=== PATIENT | female | born 1965 | race Caucasian/White ===

== ENCOUNTER 2020-06-16 17:15 | Outpatient (CLI) | payer OTHER, SELFPAY ==
--- NOTE | ~2020-06-16 | XR_ITS ---
EXAMINATION: XR chest 2V EXAM DATE: 06/16/2020 17:41 INDICATION: Cough. Left breast implant exploded. TECHNIQUE: Frontal and lateral projections of the chest obtained and reviewed. There is no prior sabino dy for comparison. FINDINGS: The lungs are clear. There are no pleural effusions. The cardiomediastinal silhouette is within normal limits. There is no pneumothorax suspected. The bones and soft tissues are unremarkab le. IMPRESSION: No acute cardiopulmonary findings. Reviewed, dictated and finalized at location A.
[2020-06-16 17:43] LABS: Basophils Absolute Auto 0.1 K/mm3 (0.0-0.1); Basophils Percent Auto 0.5 % (0.2-1.2); Eosinophils Absolute Auto 0.2 K/mm3 (0-0.3); Eosinophils Percent Auto 1.6 % (0-4.4); Hematocrit 41.3 % (37.0-47.0); Hemoglobin 14.1 g/dL (12.0-15.0); Immature Granulocyte Absolute 0.07 K/mm3 (0.00-0.031); Immature Granulocyte Percent A 0.5 % (0-0.5); Lymphocytes Absolute Auto 4.18 K/mm3 (0.9-3.2); Lymphocytes Percent Auto 31.9 % (18.3-44.2); Mean Corpuscular HGB Conc 34.1 g/dl (32-36); Mean Corpuscular Hemoglobin 30.7 pg (26-34); Monocytes Absolute Auto 1.1 K/mm3 (0.1-0.6); Monocytes Percent Auto 8.2 % (2.6-8.5); Neutrophils Absolute Auto 7.5 K/mm3 (1.3-6.7); Neutrophils Percent Auto 57.3 % (45.5-73.1); Platelet Count Result 273 k/mm3 (150-375); Red Blood Count 4.59 M/mm3 (4.2-5.4); Red Cell Distribution Width 12.6 % (11.5-14.5); White Blood Count 13.1 K/mm3 (4.5-10.0)
[2020-06-16 17:58] LABS: Alanine Aminotransferase 23 U/L (4-35); Albumin Level 4.5 g/dL (3.5-5.1); Alkaline Phosphatase 86 U/L (38-126); Anion Gap 13.5 mmol/L (7-16); Aspartate Amino Transferase 24 U/L (14-36); Bilirubin,Total 0.4 mg/dL (0.2-1.3); Blood Urea Nitrogen 26 mg/dL (7-17); Calcium 9.6 mg/dL (8.4-10.2); Carbon Dioxide 26 mmol/L (22-30); Chloride 102 mmol/L (98-107); Estimated Glomerular Filt Rate 52; Glucose 114 mg/dL (65-105); Potassium 3.5 mmol/L (3.4-5.0); Sodium 138 mmol/L (137-145)
== END 2020-06-16 17:16 | disposition home or self-care (01) ==
LOC: ANHIMG 17:16
PROVIDERS: PCP Family Medicine; Visit Provider Physician Assistant
DX: R05 Cough (principal); J44.9 Chronic obstructive pulmonary disease, unspecified; Z13.220 Encounter for screening for lipoid disorders
CPT/HCPCS: 36415; 71046; 80053; 85025

== ENCOUNTER 2020-08-27 06:55 | Outpatient (NON) | payer OTHER, SELFPAY ==
[2020-08-27 17:37] LABS: SARS-CoV-2 RNA PCR Negative
== END 2020-08-27 06:56 ==
PROVIDERS: PCP Family Medicine; Visit Provider Physician Assistant
DX: R05 Cough (principal); Z20.828 Contact with and (suspected) exposure to other viral communicable diseases
CPT/HCPCS: 87635; C9803; U0003

== ENCOUNTER → 2020-09-06 15:34 | Outpatient (CLI) | payer OTHER, SELFPAY ==
--- NOTE | ~2020-09-06 | CT_ITS ---
EXAMINATION:CT lung screening DATE: 09/06/2020 15:50 INDICATION: Personal history of tobacco dependence. 60 pack year history. TECHNIQUE: Computed tomography (CT) of the chest was performed without intravenous contrast. Automate d exposure control and iterative reconstruction technique were employed. The dose-length product (DLP ) was 105.94 mGy-cm. COMPARISON: Chest 2 views 06/16/2020 FINDINGS: There is mild emphysema. There is mild atelectasis bilaterally. There is a 3 mm nodule in l eft upper lobe. No pleural effusion. The heart size is normal. No pericardial effusion. There are kandis ateral breast implants. The left breast implant is ruptured. There is mild thoracic spondylosis. IMPRESSION: 1. Lung-RADS category 2: Benign appearance or behavior. Continue annual screening with noncontrast lo w-dose chest CT in 12 months. Reviewed, dictated and finalized at location A. IMPRESSION: 1. Lung-RADS category 2: Benign appearance or behavior. Continue annual screeni ng with noncontrast low-dose chest CT in 12 months.
== END ==
PROVIDERS: PCP Family Medicine; Visit Provider Physician Assistant
DX: Z87.891 Personal history of nicotine dependence (principal)
CPT/HCPCS: G0297

== ENCOUNTER 2021-01-24 13:17 | Outpatient (CLI) | payer OTHER, SELFPAY | END 2021-01-24 13:18 | disposition home or self-care (01) | LOC: ANHCOVIDVC 13:18 | PROVIDERS: PCP Family Medicine | DX: Z23 Encounter for immunization (principal) | CPT/HCPCS: 0001A; 91300 ==

== ENCOUNTER 2021-02-14 13:09 | Outpatient (CLI) | payer OTHER, SELFPAY | END 2021-02-14 13:10 | disposition home or self-care (01) | LOC: ANHCOVIDVC 13:09 | PROVIDERS: PCP Family Medicine | DX: Z23 Encounter for immunization (principal) | CPT/HCPCS: 0002A; 91300 ==

== ENCOUNTER 2022-03-29 08:38 | Outpatient (CLI) | payer OTHER, SELFPAY ==
--- NOTE | ~2022-03-29 | XR_ITS ---
EXAMINATION: XR chest 2V 03/29/2022 09:00 INDICATION: Cough PROCEDURE: 2 view chest COMPARISON: 06/16/2020 FINDINGS: The lungs are clear. The cardiomediastinal silhouette is within normal limits. There are no pleural effusions. There is no pneumothorax suspected. IMPRESSION: 1: NO ACUTE CARDIOPULMONARY DISEASE. Reviewed, dictated and finalized at location B.
--- NOTE | ~2022-03-29 | XR_ITS ---
XR lumbar spine min 4V 03/29/2022 09:00 Indication: Low back pain for one week Procedure: 5 views lumbar spine Comparison: No prior studies for comparison. Findings: There is disc narrowing at L4-5 with grade 1 degenerative spondylolisthesis at this level. There is facet hypertrophy at L4-5 and L5-S1. No fracture or traumatic malalignment. Vertebral body h eights are maintained. Pedicles intact. Sacral foramen are symmetric. Impression: 1: Mild-moderate lumbar spondylosis. Reviewed, dictated and finalized at location B. Impression: 1: Mild-moderate lumbar spondylosis.
[2022-03-29 09:10] LABS: Basophils Absolute Auto 0.1 K/mm3 (0.0-0.1); Basophils Percent Auto 0.6 % (0.2-1.2); Eosinophils Absolute Auto 0.3 K/mm3 (0-0.3); Eosinophils Percent Auto 2.6 % (0-4.4); Hematocrit 36.4 % (37.0-47.0); Hemoglobin 12.1 g/dL (12.0-15.0); Immature Granulocyte Absolute 0.04 K/mm3 (0.00-0.031); Immature Granulocyte Percent A 0.4 % (0-0.5); Lymphocytes Percent Auto 24.6 % (18.3-44.2); Mean Corpuscular HGB Conc 33.2 g/dl (32-36); Mean Corpuscular Hemoglobin 31.1 pg (26-34); Mean Corpuscular Volume 93.6 fl (80-100); Mean Platelet Volume 8.5 fl (7.4-10.4); Monocytes Absolute Auto 0.9 K/mm3 (0.1-0.6); Monocytes Percent Auto 8.6 % (2.6-8.5); Neutrophils Percent Auto 63.2 % (45.5-73.1); Platelet Count Result 224 k/mm3 (150-375); Red Blood Count 3.89 M/mm3 (4.2-5.4)
[2022-03-29 09:23] LABS: Alanine Aminotransferase 17 U/L (6-35); Albumin Level 4.2 g/dL (3.5-5.1); Alkaline Phosphatase 87 U/L (38-126); Anion Gap 10 mmol/L (8-16); Aspartate Amino Transferase 21 U/L (14-36); Bilirubin,Total 0.4 mg/dL (0.2-1.3); Blood Urea Nitrogen 29 mg/dL (7-17); Calcium 8.8 mg/dL (8.4-10.2); Carbon Dioxide 24 mmol/L (22-30); Chloride 105 mmol/L (98-107); Cholesterol 173 mg/dL (0-200); Estimated Glomerular Filt Rate 57; Glucose 114 mg/dL (65-110); HDL Direct 42 mg/dL; Potassium 3.9 mmol/L (3.4-5.0); Sodium 139 mmol/L (137-145); Triglycerides 232 mg/dL (<150)
[2022-03-29 09:34] LABS: LDL Cholesterol Direct 88 mg/dL
[2022-03-29 09:59] LABS: Hemoglobin A1C 5.4 % (<5.7)
== END 2022-03-29 08:39 | disposition home or self-care (01) ==
PROVIDERS: PCP Family Medicine; Visit Provider Nurse Practitioner Gerontology
DX: M47.816 Spondylosis without myelopathy or radiculopathy, lumbar region (principal); Z72.89 Other problems related to lifestyle; D72.829 Elevated white blood cell count, unspecified; R73.9 Hyperglycemia, unspecified; R05.9 Cough, unspecified
CPT/HCPCS: 36415; 71046; 72110; 80053; 80061; 83036; 85025

== ENCOUNTER → 2022-09-27 14:09 | Outpatient (CLI) | payer OTHER, SELFPAY ==
--- NOTE | ~2022-09-27 | MR_ITS ---
EXAMINATION: MR lumbar spine wo con DATE: 09/27/2022 14:43 INDICATION: Low back pain. Left leg pain. Lumbar radiculopathy. TECHNIQUE: Magnetic resonance imaging (MRI) of the lumbar spine was performed without intravenous con trast. Sequences included sagittal T2-weighted FSE, sagittal T2-weighted FS FSE, sagittal T1-weighted FSE, and axial T2-weighted FSE. COMPARISON: Lumbar spine radiographs 03/29/2022 FINDINGS: There is 3 mm anterolisthesis of L4 on L5. Vertebral body heights are normal. There is mild ly decreased disc height at L3-L4 and L4-L5. The distal spinal cord signal intensity is normal. The c onus medullaris is at T12. The following disc levels are specifically discussed: L1-L2: The disc does not extend beyond the endplate margin. There is mild bilateral facet joint osteo arthritis. There is no neural foraminal stenosis. There is no central canal stenosis. L2-L3: The disc is bulging. There is mild bilateral facet joint osteoarthritis. There is mild bilater al neural foraminal stenosis. There is mild central canal stenosis. L3-L4: The disc is bulging. There is mild bilateral facet joint osteoarthritis. There is mild bilater al neural foraminal stenosis. There is mild central canal stenosis. L4-L5: The disc is bulging and has an annular fissure. There is severe bilateral facet joint osteoart hritis. There is mild bilateral neural foraminal stenosis. There is mild central canal stenosis. L5-S1: The disc does not extend beyond the endplate margin. There is mild bilateral facet joint osteo arthritis. There is no neural foraminal stenosis. There is no central canal stenosis. IMPRESSION: 1. Mild lumbar spondylosis. Reviewed, dictated and finalized at location A. 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 Mild lumbar spondylosis.
== END ==
PROVIDERS: PCP Family Medicine; Visit Provider Nurse Practitioner Family
DX: M47.26 Other spondylosis with radiculopathy, lumbar region (principal)
CPT/HCPCS: 72148

== ENCOUNTER 2023-03-02 09:21 | Outpatient (CLI) | payer OTHER, SELFPAY ==
--- NOTE | ~2023-03-02 | XR_ITS ---
EXAM: XR lumbar spine min 4V DATE: 03/02/2023 09:36 HISTORY: M43.16 - Spondylolisthesis, lumbar region, LEFT SIDE PAIN . COMPARISON: 03/29/2022; MR lumbar spine 09/27/2022. FINDINGS: 5 nonrib-bearing lumbar-type vertebral bodies. Left-sided sacralization of L5. Pedicles in tact. 7 mm anterolisthesis at L4-5 that reduces slightly in extension. Otherwise normal alignment. Ve rtebral body heights preserved. Multilevel disc space narrowing and marginal osteophytosis, moderate at L4-5. Multilevel facet sclerosis and hypertrophy in the lower lumbar spine. No fracture or disloca tion. Atherosclerotic aortic calcification, without aneurysm. IMPRESSION: Dynamic grade 1 anterolisthesis at L4-5. Moderate degenerative disc disease at L4-5. Mult ilevel lower lumbar facet arthropathy. Reviewed, dictated and finalized at location K. IMPRESSION: Dynamic grade 1 anterolisthesis at L4-5. Moderate degenerative disc disease at L4-5. Multilevel lower lumbar facet arthropathy.
== END 2023-03-02 09:22 | disposition home or self-care (01) ==
LOC: ANHIMG 09:26
PROVIDERS: PCP Family Medicine; Visit Provider Neurological Surgery
DX: M43.16 Spondylolisthesis, lumbar region (principal); M47.26 Other spondylosis with radiculopathy, lumbar region; M51.36 Other intervertebral disc degeneration, lumbar region
CPT/HCPCS: 72110

== ENCOUNTER 2023-09-06 07:04 | Outpatient (CLI) | payer OTHER, SELFPAY ==
[2023-09-06 07:20] LABS: Basophils Absolute Auto 0.1 K/mm3 (0.0-0.1); Basophils Percent Auto 0.8 % (0.2-1.2); Eosinophils Absolute Auto 0.2 K/mm3 (0-0.3); Eosinophils Percent Auto 2.7 % (0-4.4); Hemoglobin 14.6 g/dL (12.0-15.0); Immature Granulocyte Absolute 0.03 K/mm3 (0.00-0.031); Immature Granulocyte Percent A 0.4 % (0-0.5); Lymphocytes Absolute Auto 2.22 K/mm3 (0.9-3.2); Lymphocytes Percent Auto 26.1 % (18.3-44.2); Mean Corpuscular HGB Conc 32.4 g/dl (32-36); Mean Corpuscular Hemoglobin 29.9 pg (26-34); Mean Corpuscular Volume 92.2 fl (80-100); Mean Platelet Volume 8.9 fl (7.4-10.4); Monocytes Absolute Auto 0.7 K/mm3 (0.1-0.6); Neutrophils Absolute Auto 5.3 K/mm3 (1.3-6.7); Platelet Count Result 210 k/mm3 (150-375); Red Blood Count 4.88 M/mm3 (4.2-5.4); Red Cell Distribution Width 12.6 % (11.5-14.5); White Blood Count 8.5 K/mm3 (4.5-10.0)
[2023-09-06 07:31] LABS: Alanine Aminotransferase 24 U/L (6-35); Albumin Level 4.7 g/dL (3.5-5.1); Alkaline Phosphatase 102 U/L (38-126); Anion Gap 9 mmol/L (8-16); Aspartate Amino Transferase 22 U/L (14-36); Bilirubin,Total 0.6 mg/dL (0.2-1.3); Blood Urea Nitrogen 30 mg/dL (7-17); Calcium 10.1 mg/dL (8.4-10.2); Carbon Dioxide 24 mmol/L (22-30); Chloride 105 mmol/L (98-107); Cholesterol 226 mg/dL (0-200); Estimated Glomerular Filt Rate > 60; Glucose 105 mg/dL (65-110); HDL Direct 47 mg/dL; Potassium 4.2 mmol/L (3.4-5.0); Sodium 138 mmol/L (137-145); Triglycerides 146 mg/dL (<150)
[2023-09-06 07:41] LABS: LDL Cholesterol Direct 120 mg/dL
== END 2023-09-06 07:05 | disposition home or self-care (01) ==
LOC: ANHLAB 07:05
PROVIDERS: PCP Family Medicine; Visit Provider Physician Assistant
DX: Z13.220 Encounter for screening for lipoid disorders (principal); J44.1 Chronic obstructive pulmonary disease with (acute) exacerbation; F17.200 Nicotine dependence, unspecified, uncomplicated; J44.9 Chronic obstructive pulmonary disease, unspecified
CPT/HCPCS: 36415; 80053; 80061; 84443; 85025

== ENCOUNTER 2023-10-04 12:51 | Outpatient (CLI) | payer OTHER, SELFPAY ==
--- NOTE | ~2023-10-04 | MR_ITS ---
EXAMINATION: MR lumbar spine wo con DATE: 10/04/2023 13:21 INDICATION: Lumbar radiculopathy TECHNIQUE: Magnetic resonance imaging (MRI) of the lumbar spine was performed without intravenous con trast. Sequences included sagittal T2-weighted FSE, sagittal T2-weighted FS FSE, sagittal T1-weighted FSE, and axial T2-weighted FSE. COMPARISON: 09/27/2022 FINDINGS: Lateral hypoplastic riblets at T12 and sacralized L5 segment. 4 mm anterolisthesis L4 on L5. Vertebra l body heights are normal. Normal marrow signal. Moderate disc height loss with annular fissure at L 4-L5. Mild disc height loss at L3-L4. The conus medullaris terminates at T12-L1. There is normal sign al in the caudal spinal cord. Paravertebral soft tissues are unremarkable. The following disc levels are specifically discussed: T12-L1: The disc does not extend beyond the endplate margin. There is mild bilateral facet joint oste oarthritis. There is no neural foraminal stenosis. There is no central canal stenosis. L1-L2: The disc does not extend beyond the endplate margin. There is mild bilateral facet joint osteo arthritis. There is no neural foraminal stenosis. There is no central canal stenosis. L2-L3: Disc is minimally bulging. There is mild bilateral facet joint osteoarthritis. There is mild b ilateral neural foraminal stenosis. There is negligible central canal stenosis. L3-L4: Disc is mildly bulging. There is mild bilateral facet joint osteoarthritis. There is mild bila teral neural foraminal stenosis. There is mild central canal stenosis. L4-L5: Disc is bulging with annular fissure. There is severe bilateral facet joint osteoarthritis. Th ere is mild bilateral neural foraminal stenosis. There is mild central canal stenosis. L5-S1: The disc does not extend beyond the endplate margin. There is mild bilateral facet joint osteo arthritis. There is no neural foraminal stenosis. There is no central canal stenosis. IMPRESSION: 1. No interval change in mild lumbar spondylosis. Reviewed, dictated and finalized at location A. 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
== END 2023-10-04 12:52 | disposition home or self-care (01) ==
PROVIDERS: PCP Family Medicine; Visit Provider Neurological Surgery
DX: M47.26 Other spondylosis with radiculopathy, lumbar region (principal)
CPT/HCPCS: 72148

== ENCOUNTER 2023-12-19 00:29 | Day surgery (SDC) | payer OTHER, SELFPAY ==
[2023-11-25 11:20] VITALS: BMI 26.6
--- NOTE | 2023-12-13 08:48 | SUR.PREOP ---
Patient call in regarding upcoming procedure. Reviewed preop instructions, appointment times, and procedure prep.
--- NOTE | 2023-12-17 10:16 | SUR.PREOP ---
Patient called regarding upcoming procedure. Reviewed preop instructions, appointment times, and procedure prep.
[2023-12-19 06:49] VITALS: BP 132/57; PULSE 86; RESP 20; TEMP 36.4; O2SAT 99
[2023-12-19] MEDS: LACTATED RINGERS 1,000 ML 150 ML IV CONT (07:03)
--- NOTE | 2023-12-19 07:31 | WPDANESEPPF ---
Anes - Initial Pre Proc Eval Procedure: Operation Date: 12/19/23 08:00 Proposed Procedures p Colonoscopy - Herbert Adams MD Date/Time: 12/19/23 07:31 Surgeon: Herbert Adams MD Pre Op Diagnosis: Other fecal abnormalities Patient Data Age: 58 Gender: F Height: 1.6 m Weight: 69.5 kg Last Vital Signs Temp 97.6 F 12/19/23 06:49 Pulse 86 12/19/23 06:49 Resp 20 12/19/23 06:49 BP 132/57 L 12/19/23 06:49 Pulse Ox 99 12/19/23 06:49 O2 Del Method Room Air 12/19/23 06:49 Allergies Allergy/AdvReac Type Severity Reaction Status Date / Time No Known Allergies Allergy Verified 12/19/23 06:48 Home Medications Medication Instructions Recorded Confirmed Type celecoxib 200 mg capsule (Celebrex) 200 mg PO BID #180 caps 09/02/23 12/16/23 Rx montelukast 10 mg tablet See Rx Instructions .Route 10/22/23 12/16/23 Rx .COMPLEX #90 tabs albuterol sulfate 90 mcg/actuation 1 puff inhalation Q4H PRN 12/16/23 12/16/23 Rx aerosol inhaler (ProAir HFA) bronchospasm #8.5 grams escitalopram oxalate 5 mg tablet 5 mg PO DAILY #30 tabs 12/16/23 12/16/23 Rx fluticasone fur. 100 mcg-umeclid See Rx Instructions .Route 12/16/23 12/16/23 Rx 62.5 mcg-vilant 25 mcg .COMPLEX #720 blisters inhalat.powder (Trelegy Ellipta) lisinopril 20 See Rx Instructions .Route 12/16/23 12/16/23 Rx mg-hydrochlorothiazide 25 mg tablet .COMPLEX #90 tabs loratadine 10 mg tablet 10 mg PO DAILY #90 tabs 12/16/23 12/16/23 Rx tramadol 50 mg tablet 50 mg PO BID pain #60 tabs 12/16/23 12/16/23 Rx Patient hx anesthesia problems: none Family hx anesthesia problems: none Results Review: All pre-operative results and documents have been reviewed as part of the pre-operative evaluation. [facility] Past Medical History Medical History BCC (basal cell carcinoma), face Chronic obstructive pulmonary disease, unspecified Leakage of breast implant Tobacco dependence Surgical History Surgical History H/O breast augmentation History of basal cell carcinoma (BCC) excision Family History Family History Sibling Patient's sister is in good health Father Family history of cardiovascular disease, Onset Age: 62 Social History Social History Social History: Smoking packs per day: 1 Smoking cigarettes per day: 20.0 Years smoked: 40 Smoking pack-years: 40.00 Smoking status: Current every day smoker Tobacco type: cigarettes Second hand tobacco smoke exposure: Yes Alcohol intake: current Drinks per week: 2 Substance use: never Substance use type: does not use Lack of Transportation: No Lack of Food: Never True Current Housing: I Have Housing Concerned About Future Housing: No Difficulty Paying Gas/Electric Bills: No Difficulty Paying for Meds: No Currently Unemployed: No Education: Grade School Difficulty w/ Childcare or Family Care: No Living arrangements: other Additional living arrangements comments: with sp Occupation/Education: occupation Gender identity (if verbalized by the patient): Female Sexual Orientation (if Verbalized by the Patient): Straight or Heterosexual Anes - Eval Final PreProcedure Day of Procedure 12/19/23 07:31 Patient weight: normal Heart: regular rate and rhythm Lungs: clear to auscultation Airway: Mallampati scale class II Neurological: alert and oriented Last oral intake: >/= 8 hours ASA classification: III Emergent: no Anesthetic plan: proceed Anesthesia type and monitoring: general GIVS and standard monitoring Results Review: All pre-operative results and documents have been reviewed as part of the pre-operative evaluation. Informed Consent: The patient's anesthetic pl
--- NOTE | 2023-12-19 07:48 | PM.HPGS ---
History of Present Illness History of Present Illness Consent: Risks, benefits, and alternatives have been discussed and questions answered. Patient agrees to proceed with procedure. Chief complaint: Other fecal abnormalities Narrative: Yecenia Al is a 58 year old female here for first colonoscopy, had + cologuard Review of Systems Constitutional: Constitutional: Denies headache(s) and Denies weakness Eyes: Eyes: Denies blurry vision ENT: Reports Normal hearing present, Denies headache(s) and Denies neck pain Cardiovascular: Cardiovascular: Denies chest pain and Denies dyspnea Respiratory: Respiratory: Denies dyspnea Gastrointestinal: Gastrointestinal: Reports no additional gastrointestinal complaints Genitourinary: Genitourinary: Denies dysuria Musculoskeletal: Musculoskeletal: Denies neck pain Integumentary/Breasts: Skin/Breast: Denies dry skin Neurologic: Reports Normal hearing present, Denies headache(s) and Denies weakness Psychiatric: Psychiatric: Denies anxiety Endocrine: Endocrine: Denies change in body appearance Hematologic/Lymphatic: Hematologic/Lymphatic: Denies easy bleeding Allergic/Immunologic: Allergic/Immunologic: Denies urticaria PMFSH Past Medical History Medical History BCC (basal cell carcinoma), face Chronic obstructive pulmonary disease, unspecified Leakage of breast implant Tobacco dependence Surgical History Surgical History H/O breast augmentation History of basal cell carcinoma (BCC) excision Family History Family History Sibling Patient's sister is in good health Father Family history of cardiovascular disease, Onset Age: 62 Social History Social History Social History: Smoking packs per day: 1 Smoking cigarettes per day: 20.0 Years smoked: 40 Smoking pack-years: 40.00 Smoking status: Current every day smoker Tobacco type: cigarettes Second hand tobacco smoke exposure: Yes Alcohol intake: current Drinks per week: 2 Substance use: never Substance use type: does not use Lack of Transportation: No Lack of Food: Never True Current Housing: I Have Housing Concerned About Future Housing: No Difficulty Paying Gas/Electric Bills: No Difficulty Paying for Meds: No Currently Unemployed: No Education: Grade School Difficulty w/ Childcare or Family Care: No Living arrangements: other Additional living arrangements comments: with sp Occupation/Education: occupation Gender identity (if verbalized by the patient): Female Sexual Orientation (if Verbalized by the Patient): Straight or Heterosexual Meds Home Medications and Allergies Home Medications Medication Instructions Recorded Confirmed Type celecoxib 200 mg capsule (Celebrex) 200 mg PO BID #180 caps 09/02/23 12/16/23 Rx montelukast 10 mg tablet See Rx Instructions .Route 10/22/23 12/16/23 Rx .COMPLEX #90 tabs albuterol sulfate 90 mcg/actuation 1 puff inhalation Q4H PRN 12/16/23 12/16/23 Rx aerosol inhaler (ProAir HFA) bronchospasm #8.5 grams escitalopram oxalate 5 mg tablet 5 mg PO DAILY #30 tabs 12/16/23 12/16/23 Rx fluticasone fur. 100 mcg-umeclid See Rx Instructions .Route 12/16/23 12/16/23 Rx 62.5 mcg-vilant 25 mcg .COMPLEX #720 blisters inhalat.powder (Trelegy Ellipta) lisinopril 20 See Rx Instructions .Route 12/16/23 12/16/23 Rx mg-hydrochlorothiazide 25 mg tablet .COMPLEX #90 tabs loratadine 10 mg tablet 10 mg PO DAILY #90 tabs 12/16/23 12/16/23 Rx tramadol 50 mg tablet 50 mg PO BID pain #60 tabs 12/16/23 12/16/23 Rx Allergies Allergy/AdvReac Type Severity Reaction Status Date / Time No Known Allergies Allergy Verified 12/19/23 06:48 Vital Signs Vital Signs - 24 hr 02
[2023-12-19 08:14] VITALS: BP 102/57; PULSE 78; RESP 24; O2SAT 99
[2023-12-19 08:24] VITALS: BP 121/57; PULSE 76; RESP 23; O2SAT 98
[2023-12-19 08:34] VITALS: BP 127/74; PULSE 70; RESP 24; O2SAT 100
== END 2023-12-19 08:40 | disposition home or self-care (01) ==
PROVIDERS: PCP Family Medicine; Visit Provider Internal Medicine Gastroenterology
PROC: 0DJD8ZZ Inspection of Lower Intestinal Tract, Via Natural or Artificial Opening Endoscopic (ICD-10-PCS; CPT 45378; principal; 2023-12-19 08:00)
DX: K63.5 Polyp of colon (principal); K62.1 Rectal polyp; Z79.51 Long term (current) use of inhaled steroids; J44.9 Chronic obstructive pulmonary disease, unspecified; F17.210 Nicotine dependence, cigarettes, uncomplicated
CPT/HCPCS: 45385; 88305; J2001; J2704; J7120

== ENCOUNTER 2023-12-25 14:11 | Outpatient (CLI) | payer OTHER, SELFPAY ==
[2023-12-25 15:41] LABS: Appearance Urine Clear (Clear); Bacteria Urine None Seen /hpf; Bilirubin Urine Negative (Negative); Color Urine Yellow (Yellow); Glucose Urine UA Negative (Negative); Hematocrit 40.9 % (37.0-47.0); Hemoglobin 13.7 g/dL (12.0-15.0); Ketones Urine Negative (Negative); Leukocyte Esterase Ur Negative LEU/UL (Negative); Mean Corpuscular HGB Conc 33.5 g/dl (32-36); Mean Corpuscular Volume 89.7 fl (80-100); Mean Platelet Volume 9.2 fl (7.4-10.4); Nitrate Urine Negative (Negative); Non Pathogenic Casts 0-2; Platelet Count Result 246 k/mm3 (150-375); Protein Urine Trace mg/dL (Negative); Red Blood Count 4.56 M/mm3 (4.2-5.4); Specific Grav Ur 1.016 (1.001-1.035); Squamous Epithelial Cell Urine Occasional /hpf (Few); Urobilinogen Urine 0.2 mg/dL (<2.0); WBC Urine 0-5 /hpf; White Blood Count 9.9 K/mm3 (4.5-10.0); pH Urine 6.5 (5.0-9.0)
[2023-12-25 15:45] LABS: Add Urine Microscopic? YES
[2023-12-25 15:47] LABS: Prothrombin Time 13.6 Seconds (11.1-14.7)
[2023-12-25 15:48] LABS: Partial Thromboplastin Time 28.9 SECONDS (22.3-36.8)
[2023-12-25 15:51] LABS: Anion Gap 6 mmol/L (8-16); Blood Urea Nitrogen 24 mg/dL (7-17); Calcium 9.7 mg/dL (8.4-10.2); Carbon Dioxide 28 mmol/L (22-30); Chloride 105 mmol/L (98-107); Estimated Glomerular Filt Rate 51; Glucose 114 mg/dL (65-110); Potassium 3.8 mmol/L (3.4-5.0); Sodium 139 mmol/L (137-145)
== END 2023-12-25 14:12 | disposition home or self-care (01) ==
LOC: ANHSURGERY 14:18
PROVIDERS: PCP Family Medicine; Visit Provider Neurological Surgery
DX: Z01.818 Encounter for other preprocedural examination (principal); M54.16 Radiculopathy, lumbar region
CPT/HCPCS: 36415; 80048; 81001; 85027; 85610; 85730

== ENCOUNTER 2024-01-01 00:36 | Day surgery (SDC) | payer OTHER, SELFPAY ==
[2023-12-23 10:06] VITALS: BMI 27.1
--- NOTE | 2023-12-23 10:31 | PC.NURSE ---
Report to the Outpatient Waiting Room, entrance under the green pavilion located off [facility], at time _0600 on date _01/01/24 . Planned Procedure Time: __0730 . Time changes happen often and if your time is changed the preop area will call you the afternoon before. - You and your visitor will be asked to self-screen and do not enter if you have any COVID symptoms. - A mask is optional within the hospital at this time. Patients may have clear liquids (water, carbonated beverages, clear teas, apple juice) until 3 hours prior to surgery with a maximum of 20 ounces. - No food from midnight until time of surgery - Infants may have breast milk until 4 hours before surgery, formula 6 hours prior to surgery. - Children will be allowed to drink immediately following surgery. If applicable, please bring a bottle or sippy cup to assist with drinking. Juice, water, soda, and popsicles are readily available. For infants on formula, please bring formula the day of surgery. Pacifiers are allowed. Take the following medications with a SIP of water the morning of surgery: __Escitalopram, INH, Tramadol DO NOT STOP ANY OF YOUR OTHER PRESCRIPTION MEDICATIONS PRIOR TO SURGERY ?EXCEPT THE FOLLOWING Medications to discontinue per physician ___Celebrex 7 days prior per office. Please no make-up, nail liberian, hairspray, perfume, deodorant, or body powder the day of surgery. No jewelry (including any body piercings) or valuables the day of surgery, leave them at home. Please take a shower or bath the night before, or the morning of, surgery with an antibacterial soap. Wear comfortable, loose fitting clothing. Children are encouraged to wear pajamas. - Jewelry must be removed prior to entering the operating room. Rings and piercings that are not removed may be cut off. - The hospital will not accept responsibility for valuables. - Please leave all valuables, including medications, at home the day of surgery. If you are going home after surgery, a licensed coal tram driver must drive you home. - NO public transportation without another adult if you receive anesthesia. - We recommend that an adult stay with you for 24 hours following discharge. - We also recommend that you do not drive, make important decision, drink alcoholic beverages, or take any drugs that were not prescribed by your health care provider for at least 24 hours after your discharge time. For Pediatric surgeries, we recommend two adults accompany the child home. Follow any additional instructions given to you from your surgeon. If you or anyone in your household have experienced Covid symptoms in the past week, please notify your surgeon or the nurse liaison at the phone number below for possible testing. Telephone instructions given to _Yecenia Al and asked if any additional questions and then verbalized understanding. Patient advised to call surgeon office or pre surgery nurse liaison [phone] if any additional questions.
[2024-01-01] VITALS (8 sets, daily range): BP systolic 115–160; BP diastolic 55–78; PULSE 73–99; RESP 12–18; TEMP 36.3–36.8; O2SAT 97–100
--- NOTE | ~2024-01-01 | XR_ITS ---
EXAMINATION: XR fluoroscopy no charge DATE: 01/01/2024 10:05 INDICATION: L4-L5 hemilaminectomy TECHNIQUE: Single lateral fluoroscopic spot image of the lower lumbar spine was obtained during proce dure performed by Dr. Capps. Radiologist was not present for the imaging or procedure. The amount o f fluoroscopy time used during this procedure was 0.1 minutes. COMPARISON: None. FINDINGS: Lap sponge markers, tissue retractors and a metallic probe check of the soft tissues posterior to L5. IMPRESSION: 1. Fluoroscopy utilized during neurosurgical procedure at the lower lumbar spine. See procedure note for further detail. Reviewed, dictated and finalized at location A. ER MECHANIC IMPRESSION: 1. Fluoroscopy utilized during neurosurgical procedure at the lower lumbar spin e. See procedure note for further detail.
[2024-01-01] MEDS: LACTATED RINGERS 1,000 ML 30 ML IV CONT ×2 (06:30→10:00)
--- NOTE | 2024-01-01 07:11 | WPDANESEPPF ---
Anes - Initial Pre Proc Eval Procedure: Operation Date: 01/01/24 07:30 Proposed Procedures p Left L4-5 Hemilaminectomy Foraminotomy - Keiko Capps MD Date/Time: 01/01/24 07:11 Surgeon: Keiko Capps MD Pre Op Diagnosis: Lt Lumbar Radiculopathy Patient Data Age: 58 Gender: F Height: 1.6 m Weight: 68 kg Last Vital Signs Temp 98.3 F 01/01/24 06:12 Pulse 73 01/01/24 06:12 Resp 16 01/01/24 06:12 BP 131/55 L 01/01/24 06:12 Pulse Ox 99 01/01/24 06:12 O2 Del Method Room Air 01/01/24 06:12 Allergies Allergy/AdvReac Type Severity Reaction Status Date / Time No Known Allergies Allergy Verified 01/01/24 06:05 Home Medications Medication Instructions Recorded Confirmed Type montelukast 10 mg tablet See Rx Instructions .Route 10/22/23 12/23/23 Rx .COMPLEX #90 tabs albuterol sulfate 90 mcg/actuation 1 puff inhalation Q4H PRN 12/16/23 12/23/23 Rx aerosol inhaler (ProAir HFA) bronchospasm #8.5 grams escitalopram oxalate 5 mg tablet 5 mg PO DAILY #30 tabs 12/16/23 12/23/23 Rx fluticasone fur. 100 mcg-umeclid See Rx Instructions .Route 12/16/23 12/23/23 Rx 62.5 mcg-vilant 25 mcg .COMPLEX #720 blisters inhalat.powder (Trelegy Ellipta) lisinopril 20 See Rx Instructions .Route 12/16/23 12/23/23 Rx mg-hydrochlorothiazide 25 mg tablet .COMPLEX #90 tabs loratadine 10 mg tablet 10 mg PO DAILY #90 tabs 12/16/23 12/23/23 Rx celecoxib 200 mg capsule (Celebrex) 200 mg PO DAILY 12/23/23 12/23/23 History tramadol 50 mg tablet 50 mg PO DAILY pain 12/23/23 12/23/23 History Patient hx anesthesia problems: none Family hx anesthesia problems: none Results Review: All pre-operative results and documents have been reviewed as part of the pre-operative evaluation. [facility] Past Medical History Medical History BCC (basal cell carcinoma), face Chronic obstructive pulmonary disease, unspecified Leakage of breast implant Tobacco dependence Surgical History Surgical History H/O breast augmentation History of basal cell carcinoma (BCC) excision Family History Family History Sibling Patient's sister is in good health Father Family history of cardiovascular disease, Onset Age: 62 Social History Social History Social History: Smoking packs per day: 1 Smoking cigarettes per day: 20.0 Years smoked: 40 Smoking pack-years: 40.00 Smoking status: Current every day smoker Tobacco type: cigarettes Second hand tobacco smoke exposure: Yes Alcohol intake: former Drinks per week: 2 Substance use: never Substance use type: does not use Lack of Transportation: No Lack of Food: Never True Current Housing: I Have Housing Concerned About Future Housing: No Difficulty Paying Gas/Electric Bills: No Difficulty Paying for Meds: No Currently Unemployed: No Education: Grade School Difficulty w/ Childcare or Family Care: No Living arrangements: with family Additional living arrangements comments: with sp Occupation/Education: occupation Gender identity (if verbalized by the patient): Female Sexual Orientation (if Verbalized by the Patient): Straight or Heterosexual Spiritual care concerns: No Anes - Eval Final PreProcedure Day of Procedure 01/01/24 07:11 Patient weight: normal Heart: regular rate and rhythm Lungs: clear to auscultation Airway: Mallampati scale class III Neurological: alert and oriented Last oral intake: >/= 8 hours ASA classification: III Emergent: no Anesthetic plan: proceed Anesthesia type and monitoring: general ETT and standard monitoring Results Review: All pre-operative results and documents have been reviewed as part of the pre-operative evaluation. Informed Con
--- NOTE | 2024-01-01 07:18 | WPDHPUPDATE1 ---
History and Physical Update Update Date/Time: 01/01/24 07:18 History and Physical has been reviewed, including an updated exam of the patient. There are NO changes in the patient's condition. Risks, benefits, and alternatives have been discussed and questions answered. Patient agrees to proceed with procedure.
--- NOTE | 2024-01-01 07:18 | PM.IMHP ---
H&P: HPI History of Present Illness Date/Time: 01/01/24 07:18 Chief Complaint: Left leg pain Narrative: From 02/28: Ms. Al is a 58-year-old female with history of asthma and HTN who presents for evaluation of left leg pain. ? About a year ago, the patient developed radicular leg pain into the left buttock and down aspect of leg to.? She has occasionally had some pain and paresthesias into top foot.? She works in [employer] and frequently lifts objects up to about 50 lb.? She does recall lifting a box off of a high shelf soon before this pain started.? She has taken a number medications including gabapentin, tramadol, diclofenac, and a muscle relaxer, none of which have provided significant relief.? She was following with interventional pain consultants who performed multiple epidural steroid injections at L4 and L5 without any significant benefit.? The pain is worst 1st thing in the morning and also worsens with heat.? She can get some improvement with cold packs and a lidocaine patch to the ankle.? She does a significant amount walking for her job, currently up to 6 miles a day.? She recently switched to a new position which is less physical because of her symptoms.? She has also started using a cane in the last 6-7 weeks to help take pressure off of her left leg.? She denies any significant back pain, right-sided symptoms, jeison weakness, or bowel or bladder changes. ? Of note, she has previously been a 2-3 pack per day smoker.? She has recently cut down to 10-12 cigarettes a day.? She related that she has been having a lot of difficulty taking care of her 36-year-old son who has recently been diagnosed with schizoaffective and bipolar disorder.? He lives in [place], and she drives to visit him on nearly a daily basis. This makes it difficult for her to fit anything into her schedule other than work and visiting her son. From 05/09: ? Since her last visit, she has completed 4-5 sessions of physical therapy without significant change.? She has not had any further injections.? She thinks that her pain is worsened.? She has fairly minimal back pain.? Her most significant complaint is the pain in the lateral aspect of her left ankle radiating into the top the foot.? She has also fairly significant pain in the left gluteal region with a mild radicular pain connecting the 2 down the lateral aspect of the leg. From 09/19: ? She returns today to discuss her EMG.? Her symptoms are unchanged.? She continues to have pain on the left side starting in the medial upper buttock radiating down the lateral aspect of the leg to the top of the foot.? She denies any right-sided symptoms. Review of Systems Review of Systems: All systems reviewed & are unremarkable except as noted in HPI and below PMFSH Past Medical History Medical History BCC (basal cell carcinoma), face Chronic obstructive pulmonary disease, unspecified Leakage of breast implant Tobacco dependence Surgical History Surgical History H/O breast augmentation History of basal cell carcinoma (BCC) excision Family History Family History Sibling Patient's sister is in good health Father Family history of cardiovascular disease, Onset Age: 62 Social History Social History Social History: Smoking packs per day: 1 Smoking cigarettes per day: 20.0 Years smoked: 40 Smoking pack-years: 40.00 Smoking status: Current every day smoker Tobacco type: cigarettes Second hand tobacco smoke exposure: Yes Alcohol intake: former Drinks per week: 2 Substance use: never Substance use type: does not use Lack of Transportation: No Lack of Food: Never True Current Housing: I Have Housing Concerned About Future Housing: No Diff
[2024-01-01] MEDS: ceFAZolin 2 GM/D5W 50 ML 2 GM/50 ML BAG IVPB (07:33)
[2024-01-01] MEDS: BUPIVACAINE/EPINEPHRINE 0.5% 30 ML VIAL 20 ML INFILTRATE (08:19)
--- NOTE | 2024-01-01 09:08 | PM.OP ---
Procedure Note - Brief Procedure Note - Brief Date of procedure: 01/01/24 Lt Lumbar Radiculopathy Post-op diagnosis: Same Procedure performed: Left L4-5 hemilaminotomy, foraminotomy Surgeon: Keiok Capps MD Anesthesia: GETA Findings: Wide decompression of left L5 nerve root Estimated blood loss (mL): 25 Drains: No Packing: No Pathology: None sent Complications: None Condition: Stable Disposition: PACU
[2024-01-01] MEDS: fentaNYL CITRATE INJ (*CRX) 100 MCG/2 ML VIAL 25 MCG IV PUSH ×2 (09:59→10:02)
[2024-01-01] MEDS: oxyCODONE HCL (*CRX) 5 MG TAB IR PO (10:29)
--- NOTE | 2024-01-01 13:14 | P.OP_ITS ---
Procedure Note - Detailed Date of Procedure 01/01/24 Pre-op Diagnosis Lt Lumbar Radiculopathy Post-op Diagnosis Same Procedure Performed 1. Left L4-5 hemilaminectomy and foraminotomy 2. Use of microscope for microsurgical dissection 3. Use of c-arm for fluoroscopy Surgeon Keiko Capps MD Anesthesia General Indications Ms. Al is a 58-year-old female with history of an L5 radiculopathy for the last year which has thus far been resistant to medical management and epidural steroid injections.? She is neurologically intact on physical exam.? MRI lumbar spine shows a grade 1 anterolisthesis L4 on L5.? There is significant lateral recess stenosis on the left side at L4-5.??She had flexion-extension x-rays on which the spondylolisthesis is apparent, but I do not see significant motion with flexion or extension.? Her EMG did not show evidence of a peroneal neuropathy.? Given that her symptoms are persistent and significantly bothersome for her, I recommended surgery in the form of a left L4-5 hemilaminectomy and foraminotomy. Risks including bleeding, pain, infection, weakness, CSF leak, nerve damage, paresthesias, and failure to relieve symptoms were discussed. The patient provided written informed consent to proceed. Description of Procedure Patient was brought into the operating room where general anesthesia was induced.? The patient was turned prone onto the operating team onto the Manuel frame.? Pressure points well padded.? The C-arm was brought in to assist with visualization of the incision.? The incision was marked.? The surgical field was performed the restroom sterile fashion.? Time-out was performed, and local anesthetic was injected in planned incision Incision was made with a 10 blade scalpel.? Soft tissue was dissected to the spinous process with Bovie.? Self-retaining retractors placed.? The muscles retracted away from the lamina with the Bovie.? Then an up-angled curette was placed under the left L4 lamina, at which time the C-arm was brought in to confirm the appropriate level.? The Earl retractor was placed.? The microscope was draped and brought into the field for microsurgical dissection.? High-speed drill was used to remove lamina on the left side. Ligamentum flavum was identified and elevated with up-angled curette as well as Kerrison measures.? The dura and proximal nerve root were well exposed.?The length of the nerve root was palpated; additional bone in the medial foramen was removed with the kerrison as well. Anterior to the dura, the spinal canal was evaluated with a Tracy and up-angled curette.? Small disc bulge was present; however no large disc herniation was noted, and the nerve was felt to be well decompressed, and so no diskectomy was performed.? A Rochester was used to follow the nerve root into the foramen which felt well decompressed. The surgical site was copiously irrigated.? Hemostasis was achieved with Surgiflo and the bipolar.? Fascia was closed with Vicryl.? The surgical field was again copiously.? 2-0 Vicryl and 3-0 Vicryl was used to close the dermis and deep dermis.? The skin was closed with subcuticular running 4-0 Monocryl.? Dermabond was placed over the incision.? Patient was returned supine to the stretcher, extubated, and transferred to the PACU without incident. Billing codes: 31798, 70006 Estimated Blood Loss 25 Drains No Packing No Pathology None sent Complications None Condition Stable Disposition PACU [facility] Billing Surgery - Charge Forward: Surgery Billing
== END 2024-01-01 11:15 | disposition home or self-care (01) ==
PROVIDERS: PCP Family Medicine; Visit Provider Neurological Surgery
PROC: (CPT 63030; principal; 2024-01-01 07:30)
DX: M54.16 Radiculopathy, lumbar region (principal); J44.9 Chronic obstructive pulmonary disease, unspecified; F17.210 Nicotine dependence, cigarettes, uncomplicated; Z79.51 Long term (current) use of inhaled steroids
CPT/HCPCS: 63030; 36415; 80048; 81001; 85027; 85610; 85730; 99199; A9270; J0330; J0690; J1100; J1170; J2250; J2371; J2405; J2704; J3010; J7120

== ENCOUNTER 2025-01-04 07:40 | Outpatient (CLI) | payer OTHER, SELFPAY ==
--- OUTSIDE RECORDS SUMMARY | 2025-01-04 07:45 | XMS_ITS | Patient Health Summary ---
Author Organization [facility] [email or web address] Address [address] [address] Care Team Providers Care Stitch Bonding Machine Operator Name Role Phone Andrew Triana MD Primary Care Provider [phone] Note from [facility],non-owned Affiliates and Associated Physician Practices is amultiple site organization consisting of ambulatory clinics and hospital sitesin [place], [place], [place] and [place]. This disclosure is being madepursuant to the Care Everywhere program and may not contain all information available regarding this patient. Last updated 18.[facility] Allergies No known active allergies Medications * Be aware that medications may not be up to date on this document. Alwaysverify current medications with the patient. * lisinopril (PRINIVIL; ZESTRIL) 2.5 MG tablet Take 2.5 mg by mouth once daily * naproxen sodium (ANAPROX DS) 550 MG tablet(Started 06/16/2015) Take 1 Tab by mouth 2 times daily as needed for Pain * cyclobenzaprine (FLEXERIL) 10 MG tablet(Started 06/16/2015) Take 1 Tab by mouth 3 times daily as needed for Muscle Spasms Social History Tobacco Use Types Packs/Day Years Used Date Smoking Tobacco: Never Assessed Sex and Gender Information Value Date Recorded Sex Assigned at Not on file Gender Identity Not on file Sexual Orientation Not on file Last Filed Vital Signs Vital Sign Reading Time Taken Comments Blood Pressure 115/78 06/16/2015 4:18 PM CDT Pulse 79 06/16/2015 4:18 PM CDT Temperature 36.9 C (98.5 F) 06/16/2015 4:18 PM CDT Respiratory Rate 18 06/16/2015 12:22 PM CDT Oxygen Saturation 100% 06/16/2015 4:18 PM CDT Inhaled Oxygen Concentration - - Weight 70.9 kg (156 lb 3.2 oz) 06/16/2015 12:22 PM CDT Height 160 cm (5' 3 ) 06/16/2015 12:22 PM CDT Body Mass Index 27.67 06/16/2015 12:22 PM CDT Procedures * XR LUMBAR SPINE 2 OR 3VW(Performed 06/16/2015) * XR CERVICAL SPINE 2 OR 3VW(Performed 06/16/2015) Performed for Neck pain * XR SACRUM AND COCCYX(Performed 06/16/2015) Results * XR LUMBAR SPINE TRAUMA 2 OR 3 VW (06/16/2015 3:34 PM CDT) Anatomical Region Laterality Modality Spine Radiographic Tori ging 06/16/2015 3:38 PM CDT Impressions 06/16/2015 3:39 PM CDT Mild lower lumbar spine degenerative disc disease. Narrative 06/16/2015 3:39 PM CDT Examination: Lumbar spine 2 or 3 views History: Back pain Findings: AP and lateral views of the lumbar spine were performed without prior comparison. Alignment of the lumbar spine is normal. There is no compression deformity. There is mild L4-5 and L5-S1 degenerative disc disease. Inferior lumbar facet osteoarthritis is noted. Aorta is atherosclerotic. Procedure Note Jean Dejesus MD - 06/16/2015 Examination: Lumbar spine 2 or 3 views History: Back pain Findings: AP and lateral views of the lumbar spine were performed without prior comparison. Alignment of the lumbar spine is normal. There is no compression deformity. There is mild L4-5 and L5-S1 degenerative disc disease. Inferior lumbar facet osteoarthritis is noted. Aorta is atherosclerotic. IMPRESSION Mild lower lumbar spine degenerative disc disease. Martha Suazo SOCIAL MEDIA COMMUNITY MANAGER-HEAT SET OPERATOR DIAGNOSTIC IMAG ING ORDERABLES * XR CERVICAL SPINE 2 OR 3 VW (06/16/2015 3:33 PM CDT) Anatomical Region Laterality Modality Spine Radiographic Tori ging 06/16/2015 3:37 PM CDT Impressions 06/16/2015 3:38 PM CDT Negative for fracture. Narrative 06/16/2015 3:38 PM CDT Cervical spine 2 views. History: Neck pain. AP and lateral view show normal vertebral heights and interspace heights. Alignment is maintained. Odontoid process appears normal. Procedure Note Son Gustafson MD - 06/16/2015 Cervical spine 2 views. History: Neck pain. AP and lateral view show normal vertebral heights and interspace heights. Alignment is maintained. Odontoid process appears normal. IMPRESSION Negative for fracture. Martha Suazo APRN-HEAT SET OPERATOR DIAGNOSTIC IMAG ING ORDERABLES * XR SACRUM AND COCCYX (06/16/2015 3:33 PM CDT) Anatomical Region Laterality Modality Spine Radiographic Tori ging 06/16/2015 3:36 PM CDT Impressions 06/16/2015 3:36 PM CDT Unremarkable study. Narrative 06/16/2015 3:36 PM CDT Sacrum and coccyx. History: Fall. AP and lateral view show no fracture or dislocation. Procedure Note Son Gustafson MD - 06/16/2015 Sacrum and coccyx. History: Fall. AP and lateral view show no fracture or dislocation. IMPRESSION Unremarkable study. Martha RAMIREZ DIAGNOSTIC IMAG ING ORDERABLES Care Teams Stitch Bonding Machine Operator Relationship Specialty Start Date End Date Andrew Triana MD PCP - General Family Medicine 06/16/15
--- OUTSIDE RECORDS SUMMARY | 2025-01-04 07:46 | XMS_ITS ---
Author Organization [facility] Address [address] [place] [address] [address] [place], [place] [id number] Care Team Providers Care Pharmaceutical Sales Representative Name Role Phone Armando Mccabe Primary Care Provider Fermin Osman Unavailable [phone] Migration, Provider Unavailable Unavailable REASON FOR VISIT Multum To Medispan Conversion Encounter Medications Medication SIG (Take, Route, Frequency, Duration) Notes Start Date End Date Status Montelukast Sodium 10 MG 1 tab(s) orally once a day (in the evening) Active PROAIR HFA CFC FREE 90 MCG/INH 2 PUFF(S) INHALED 4 TIMES A DAY *Please review for potential replacement for e-prescription and drug interaction check* Active Lisinopril 2.5 MG 1 tab(s) orally once a day Active Encounters Encounter Location Date Provider Diagnosis [facility] [address] [facility] [address] [place], [place] [phone] 10/24/2024 Provider Migration Plan Of Treatment No Information Progress Notes * LENNY, Yecenia ADOB:1964 (59 yo F)Acc No.[id number]:10/24/2024 Patient: Yecenia GRANADOS Provider: Marycarmen buck Migration :1965 A ge:59 Y S ex:Female Date:10/24/2024 Address:[address] [place], [place] [phone] Pcp:Armando Mccabe Subjective: * Chief Complaints: * 1 . Multum To Medispan Conversion Encounter. * Medical History: * Medications: T aking Lisinopril 2.5 MG Tablet 1 tab(s) orally once a day , Taking Montelukast Sodium 10 MG Tablet 1 tab(s) orally once a day (in the evening) , Taking PROAIR HFA CFC FREE 90 MCG/INH AEROSOL 2 PUFF(S) INHALED 4 TIMES A DAY , Notes to Pharmacist: *Please review for potential replacement for e-prescription and drug interaction check* Objective: * Vitals: * Physical Examination: Assessment: Plan: * Treatment: * * Electronic signature of Isaac omalley Migration on 01/04/2025 at 07:45 AM DENTAL PATIENT COORDINATOR Sign off status: Pending * Provider: Marycarmen buck Migration Date: 12/25/2023 Generated for Jeremy isabel/Clara/Darya on: 01/04/2025 07:45 AM DENTAL PATIENT COORDINATOR
--- OUTSIDE RECORDS SUMMARY | 2025-01-04 07:46 | XMS_ITS | Clinical Summary ---
Author Organization [facility] [employer] Address [address] [place] [address] Care Team Providers Care Financial Aid Administrator Name Role Phone Andrew Triana MD Primary Care Provider [phone] Source Comments [facility] [employer],non-owned Affiliates and Associated Physician Practices is amultiple site organization consisting of ambulatory clinics and hospital sitesin [place], [place], [place] and [place]. This disclosure is being madepursuant to the Care Everywhere program and may not contain all information available regarding this patient. Last updated 18.[facility] [employer] Allergies No known active allergies Medications * Be aware that medications may not be up to date on this document. Alwaysverify current medications with the patient. Medication Sig Dispensed Refills Start Date End Date Status lisinopril (PRINIVIL; ZESTRIL) 2.5 MG tablet Take 2.5 mg by mouth once daily Active naproxen sodium (ANAPROX DS) 550 MG tablet Take 1 Tab by mouth 2 times daily as needed for Pain 20 Tab 0 06/16/2015 Active cyclobenzaprine (FLEXERIL) 10 MG tablet Take 1 Tab by mouth 3 times daily as needed for Muscle Spasms 10 Tab 0 06/16/2015 Active Social History Tobacco Use Types Packs/Day Years [...] Mass Index 27.67 06/16/2015 12:22 PM CDT Plan of Treatment Health Maintenance Due Date Last Done Comments COLOGUARD (AGES 45-75) - COL ON CA SCREENING 1965 COLON MONITORING 1965 COLONOSCOPY - COLON CA SCREENING 1965 CT COLONOGRAPHY - COLON CA SCREENING 1965 Colorectal Cancer Screening 1965 FIT - COLON CA SCREENING 1965 FLEX SIG - COLON CA SCREENING 1965 LIPID TESTING 1965 MAMMOGRAM 1965 PAP SMEAR 1965 HIV SCREENING 01/20/1980 HEPATITIS C SCREENING 01/15/1983 DTAP/TDAP/TD VACCINES (1 - Tdap) 01/20/1984 HEPATITIS B VACCINE (1 of 3 - 19+ 3-dose series) 01/20/1984 PNEUMOCOCCAL VACCINE 50+ (1 of 1 - PCV) 2015 ZOSTER VACCINE (1 of 2) 2015 COVID-19 VACCINE ( - 2023-2 5 season) 2024 INFLUENZA VACCINE (#1) 2024 DEPRESSION SCREENING 11/11/2024 HIB VACCINE Aged Out No longer eligi ble based on patient's age to complete this topic HPV VACCINE Aged Out No longer eligi ble based on patient's age to complete this topic MENINGOCOCCAL (Group B) VACCINE Aged Out No longer eligible based on patient's age to complete this topic MENINGOCOCCAL VACCINE Aged Out No mendy parvez eligible based on patient's age to complete this topic PNEUMOCOCCAL VACCINE Aged Out No long er eligible based on patient's age to complete this topic Care Teams Financial Aid Administrator Relationship Specialty Start Date End Date Andrew Triana MD PCP - General Family Medicine 06/16/15
--- OUTSIDE RECORDS SUMMARY | 2025-01-04 07:46 | XMS_ITS | Referral Summary ---
Author Organization [facility] Address [address] [place] [address] Care Team Providers Care Pipeline Superintendent Name Role Phone Andrew Triana MD Primary Care Provider [phone] Source Comments [facility] [employer],non-owned Affiliates and Associated Physician Practices is amultiple site organization consisting of ambulatory clinics and hospital sitesin [place], [place], [place] and [place]. This disclosure is being madepursuant to the Care Everywhere program and may not contain all information available regarding this patient. Last updated 18.[facility] [employer] Allergies No known active allergies Medications * [...] 06/16/2015 12:22 PM CDT Plan of Treatment Not on file Care Teams Pipeline Superintendent Relationship Specialty Start Date End Date Andrew Triana MD PCP - General Family Medicine 06/16/15
--- OUTSIDE RECORDS SUMMARY | 2025-01-04 07:46 | XMS_ITS | Patient Health Record ---
Author Organization [facility] Address [address] [place], [place] [id number] Care Team Providers Care Pigeon Fancier Name Role Phone Andrejhonny Armando Primary Care Provider Fermin Osman Unavailable [phone] Migration, Provider Unavailable Unavailable Reason For Referral No Information Medications Medication SIG (Take, Route, Frequency, Duration) Notes Start Date End Date Status Montelukast Sodium 10 MG 1 tab(s) orally once a day (in the evening) Active PROAIR HFA CFC FREE 90 MCG/INH 2 PUFF(S) INHALED 4 TIMES A DAY *Please review for potential replacement for e-prescription and drug interaction check* Active Lisinopril 2.5 MG 1 tab(s) orally once a day Active Immunizations Vaccine Route Administration Date Status Comme nts Influenza Unknown 01/21/2017 Refused Social History Tobacco Use: Social History Observation Description Date Details (start date - stop date) Current Smoker NA - NA Alcohol Question Answer Notes Points 2 Interpretation Negative Smoking Question Answer Notes Are you a: current every day smoker Additional findings:Tot Moderate cigarette smoke r (10-19 cigs/day) Problems Problem Type SNOMED Code ICD Code Onset Dates Problem Status W/U Status Risk Notes Problem Cancer of skin of face, basal cell (019907863) Basal cell carcinoma of skin of unspecified parts of face (C44.310) Active confirmed Problem Neoplastic disease of uncertain behavior (231788912) Neoplasm of unspecified behavior of bone, soft tissue, and skin (D49.2) Active confirmed Problem Chronic sinusitis (43363136) Chronic sinusitis, unspecified (J32.9) Active confirmed Problem Deviated nasal septum (957696419) Deviated nasal septum (J34.2) Active confirmed Problem Other specified disorders of nose and nasal sinuses/rafi bullosa/septal perforation (J34.89) Active confirmed Problem Dental caries (29156786) Dental caries, unspecified (K02.9) Active confirmed Problem Swelling of head (692866267) Localized swelling, mass and lump, head (R22.0) Active confirmed Encounters Encounter Location Date Provider Diagnosis [facility] [address] [facility] [address] [place], [place] [phone] 10/24/2024 Provider Migration Plan Of Treatment No Information Insurance Providers Payer Name Payer Address Payer Phone Subscriber Number Group Number Insured Name Patient Relationship to Insured Coverage Start Date Coverage End Date [facility] [address] [place] [address] [id number] Armando Al Spouse - patient is the spouse of the insured Medical (General) History Medical History History ICD Code Pertinent Medical History: S inusitis, History of Allergies, Nose problems, High blood pressure, Asthma, Surgical History Surgery Date(Month/Year) T&A tubal ligation breast implants large bcca --left cheek --with major lef t cheek flap repair --ajd 02/26/2017
[2025-01-04 08:12] LABS: Hematocrit 42.7 % (37.0-47.0); Hemoglobin 14.3 g/dL (12.0-15.0); Mean Corpuscular HGB Conc 33.5 g/dl (32-36); Mean Corpuscular Hemoglobin 30.2 pg (26-34); Mean Corpuscular Volume 90.1 fl (80-100); Mean Platelet Volume 8.8 fl (7.4-10.4); Platelet Count Result 229 k/mm3 (150-375); Red Blood Count 4.74 M/mm3 (4.2-5.4); White Blood Count 7.7 K/mm3 (4.5-10.0)
[2025-01-04 08:27] LABS: Alanine Aminotransferase 19 U/L (6-35); Albumin Level 4.1 g/dL (3.5-5.1); Alkaline Phosphatase 108 U/L (38-126); Anion Gap 9 mmol/L (4-12); Aspartate Amino Transferase 17 U/L (14-36); Bilirubin,Total 0.5 mg/dL (0.2-1.3); Blood Urea Nitrogen 16 mg/dL (7-17); Calcium 9.3 mg/dL (8.4-10.2); Carbon Dioxide 24 mmol/L (22-30); Chloride 106 mmol/L (98-107); Cholesterol 204 mg/dL (0-200); Estimated Glomerular Filt Rate > 60; Glucose 79 mg/dL (65-110); HDL Direct 42 mg/dL; Sodium 139 mmol/L (137-145); Triglycerides 180 mg/dL (<150)
[2025-01-04 08:38] LABS: LDL Cholesterol Direct 112 mg/dL
== END 2025-01-04 07:41 | disposition home or self-care (01) ==
LOC: ANHLAB 07:41
PROVIDERS: PCP Family Medicine; Visit Provider Physician Assistant
DX: J44.9 Chronic obstructive pulmonary disease, unspecified (principal); Z13.220 Encounter for screening for lipoid disorders; F17.200 Nicotine dependence, unspecified, uncomplicated
CPT/HCPCS: 36415; 80053; 80061; 85027

== ENCOUNTER 2025-10-21 11:15 | Outpatient (CLI) | payer OTHER, SELFPAY ==
--- NOTE | ~2025-10-21 | CT_ITS ---
EXAMINATION: CT lung screening DATE: 10/21/2025 12:48 INDICATION: Z87.891 - Personal history of nicotine dependence TECHNIQUE: Computed tomography (CT) of the chest was performed without intravenous contrast. Additional 3D reconstructions utilizing coronal maximum intensity projection (MIP) were performed. Automated exposure control and iterative reconstruction technique were employed. The dose-length product was 76 .78 mGy-cm. COMPARISON: None FINDINGS: Mild emphysema. Small calcified nodule at the right lung base consistent with old granulomatous disease. 3 mm central solid, preferably groundglass nodule in the left upper lobe.. Both nodules are unchanged since the prior study. No new or enlarging pulmonary nodules identified... Heart size is normal. No pericardial effusion. Thoracic aorta is normal in caliber. No pathologically enlarged thoracic lymphadenopathy. Bilateral breast implants, chronically collapsed on the left. Visualized upper abdomen is unremarkable. Mild thoracic spondylosis. IMPRESSION: 1. Lung-RADS category 2: Benign appearance or behavior. Continue annual screening with noncontrast low-dose chest CT in 12 months. Reviewed, dictated and finalized at location A. [facility]TER [facility] IMPRESSION: 1. Lung-RADS category 2: Benign appearance or behavior. Continue annual screeni ng with noncontrast low-dose chest CT in 12 months.
== END 2025-10-21 11:16 | disposition home or self-care (01) ==
PROVIDERS: PCP Family Medicine; Visit Provider Physician Assistant
DX: Z12.2 Encounter for screening for malignant neoplasm of respiratory organs (principal); Z87.891 Personal history of nicotine dependence
CPT/HCPCS: 71271